=== PATIENT | male | born 1955 | race Two or more races ===

== ENCOUNTER 2016-10-31 09:25 | Emergency (ER) | payer OTHER ==
[2016-10-31 09:57] LABS: EOSINOPHIL (%) 1.8 % (0-5); EOSINOPHIL COUNT 0.1 K/uL (0-0.3); HEMATOCRIT 45.9 % (38.0-50.0); IMMATURE GRANULOCYTE (%) 1.5 % (0.0-0.7); MCH 32.2 PG (29.0-34.0); MCHC 36.6 G/DL (30.0-36.0); MCV 87.9 FL (86-99); MEAN PLAT.VOLUME 10.1 uM^3 (9.0-12.4); MONOCYTE (%) 6.4 % (3-12); MONOCYTE COUNT 0.4 K/uL (0-0.8); NEUTROPHIL (%) 74.6 % (45-76); NEUTROPHIL COUNT 4.9 K/uL (1.8-6.4); PLATELET COUNT 180 K/uL (156-360); RBC DIS.WIDTH-CV 12.9 % (11.8-14.6); RED BLOOD COUNT 5.22 M/uL (4.00-5.50); WHITE BLOOD COUNT 6.6 K/uL (4.1-10.2)
[2016-10-31 10:05] LABS: AMYLASE 81 IU/L (1-118); CHLORIDE 107 mEq/L (99-109); SODIUM 140 mEq/L (136-147)
[2016-10-31 10:07] LABS: GLUCOSE 102 mg/dL (70-99)
[2016-10-31 10:08] LABS: ANION GAP 9 MEQ/L (2-14)
[2016-10-31 10:10] LABS: SERUM ETHYL ALCOHOL < 10 mg/dL
[2016-10-31 10:11] LABS: GFR ESTIMATE (CALCULATED) > 59 mL/min/
[2016-10-31 10:12] LABS: UREA NITROGEN (BUN) 15 mg/dL (9-23)
[2016-10-31 10:14] LABS: LIPASE 32 U/L (1.0-51.0)
[2016-10-31 11:05] LABS: TROP-I INTERPRETATION NEGATIVE; TROPONIN-I < 0.01 ng/mL (0.0-0.30)
[2016-10-31 11:28] LABS: ADD MIUA? NO; BILIRUBIN NEGATIVE; BLOOD NEGATIVE; COLOR YELLOW ((YELLOW)); GLUCOSE (STRIP) NEGATIVE; KETONES NEGATIVE; LEUKOCYTES NEGATIVE; NITRITE NEGATIVE; PH, URINE 7.5 (5-8); PROTEIN (STRIP) NEGATIVE; SPECIFIC GRAVITY 1.025 (1.000-1.030); UROBILINOGEN 0.2 MG/DL (0.2-1.0)
[2016-10-31 11:30] LABS: UCUL ADDED? NO
[2016-10-31 11:52] LABS: AMPHETAMINE NEGATIVE (500 ng/mL); BARBITURATES NEGATIVE (200 ng/mL); BENZODIAZEPINES NEGATIVE (150 ng/mL); COCAINE NEGATIVE (150 ng/mL); INTERNAL CONTROLS VALID? YES; METHADONE NEGATIVE (200 ng/mL); METHAMPHETAMINE NEGATIVE (500 ng/mL); OPIATES (MORPHINE) NEGATIVE (100 ng/mL); OXYCODONE NEGATIVE (100 ng/mL); PHENCYCLIDINE NEGATIVE (25 ng/mL); PROPOXYPHENE NEGATIVE (300 ng/mL); THC CANNABINOIDS NEGATIVE (50 ng/mL); TRICYCLIC ANTIDEPRESSANTS NEGATIVE (300 ng/mL)
[2016-10-31] MEDS ORDERED: FLEXERIL10 MG PO (12:29)
[2016-10-31] MEDS ORDERED: ULTRAM50 MG PO (12:29)
== END 2016-10-31 12:57 | disposition home or self-care (01) ==
LOC: TRA 09:25
PROVIDERS: Emergency Medicine
PROC: 0HQ0XZZ Repair Scalp Skin, External Approach (ICD-10-PCS; principal; 2016-10-31)
DX: S01.02XA Laceration with foreign body of scalp, initial encounter (principal); M54.5 Low back pain; V48.5XXA Car driver injured in noncollision transport accident in traffic accident, initial encounter; Y92.411 Interstate highway as the place of occurrence of the external cause
CPT/HCPCS: 70450; 71260; 72125; 72129; 72132; 74177; 80048; 81003; 82150; 83690; 84484; 85025; 86850; 86900; 86901; 93005; 99281; 99285; G0480